=== PATIENT | female | born 1955 | race Caucasian/White ===

== ENCOUNTER 2018-09-10 13:34 | Outpatient (CLI) | payer BC | END 2018-09-10 13:35 | disposition home or self-care (01) | LOC: BICMAMMO 13:34 | PROVIDERS: ATTEND Advanced Practice Midwife | DX: Z12.31 Encounter for screening mammogram for malignant neoplasm of breast (principal) | CPT/HCPCS: 77063; 77067 ==

== ENCOUNTER 2020-06-27 09:18 | Outpatient (CLI) | payer BC, OTHER ==
--- NOTE | 2020-06-27 09:46 | BD ---
EXAM: Bone densitometry using DEXA HISTORY: 64 yo female. Screening for postmenopausal osteoporosis FINDINGS: L1--bone mineral density 0.939 g/sq cm; T score -0.5 ; Z score 1.0 L2--bone mineral density 1.202 g/sq cm; T score 1.6 ; Z score 3.2 L3--bone mineral density 1.127 g/sq cm; T score 0.4 ; Z score 2.1 L4--bone mineral density 1.100 g/sq cm; T score 0.4 ; Z score 2.1 Total L1-L4--bone mineral density 1.089 g/sq cm; T score 0.4 ; Z score 2.0 Left femoral neck--bone mineral density0.617; T score -2.1 ; Z score -0.7 Total proximal left femur--bone mineral density 0.876; T score -0.5 ; Z score 0.6 There has been an interval improvement of 6.3% in the BMD of the lumbar spine and a improvement of 2.4% in the BMD of the proximal femur since the previous study of 10/04/2019. The 10 year fracture risk for a major osteoporotic fracture is 10% and for a hip fracture is 1.5%. IMPRESSION: Osteopenia
== END 2020-06-27 09:19 | disposition home or self-care (01) ==
LOC: BICMAMMO 09:18
PROVIDERS: ATTEND Advanced Practice Midwife
DX: Z13.820 Encounter for screening for osteoporosis (principal); M85.852 Other specified disorders of bone density and structure, left thigh
CPT/HCPCS: 77080

== ENCOUNTER 2022-11-19 09:50 | Outpatient (CLI) | payer MEDICARE | END 2022-11-19 09:51 | disposition home or self-care (01) | LOC: BICMAMMO 09:50 | PROVIDERS: ATTEND Physician Assistant | DX: Z12.31 Encounter for screening mammogram for malignant neoplasm of breast (principal); Z13.820 Encounter for screening for osteoporosis; M85.851 Other specified disorders of bone density and structure, right thigh; M85.852 Other specified disorders of bone density and structure, left thigh | CPT/HCPCS: 77063; 77067; 77080 ==

== ENCOUNTER 2025-06-09 13:43 | Outpatient (CLI) | payer MEDICARE | END 2025-06-09 13:44 | disposition home or self-care (01) | LOC: BICMAMMO 13:43 | PROVIDERS: ATTEND Family Medicine | DX: Z12.31 Encounter for screening mammogram for malignant neoplasm of breast (principal); Z78.0 Asymptomatic menopausal state; M85.851 Other specified disorders of bone density and structure, right thigh; M85.852 Other specified disorders of bone density and structure, left thigh | CPT/HCPCS: 77063; 77067; 77080 ==